=== PATIENT | male | born 1960 | race Caucasian/White ===

== ENCOUNTER 2023-12-04 14:16 | Emergency (ER) | payer BC, SELFPAY ==
[2023-12-04 14:21] VITALS: BP 171/92
[2023-12-04 14:40] LABS: % Basophils 0.5 % (0-2); % Eosinophils 5.7 % (0-6); % Immature Granulocytes 0.5 % (0-0.5); % Lymphocytes 29.7 % (20.5-51.1); % Monocytes 7.2 % (1.7-9.3); % Neutrophils 56.4 % (42.2-75.2); Absolute Eosinophils 0.4 10^3/uL (0-0.7); Absolute Lymphocytes 1.9 10^3/uL (1.2-3.4); Absolute Monocytes 0.5 10^3/uL (0.1-0.6); Absolute Neutrophils 3.6 10^3/uL (1.4-6.5); Hematocrit 44.1 % (39.0-52.0); Hemoglobin 15.3 g/dL (13.0-18.0); Mean Corp Hgb Conc. 34.7 g/dL (33.0-37.0); Mean Corpuscular Hgb 29.1 pg (27.0-31.0); Mean Platelet Volume 10.5 fL (7.4-10.4); Nucleated Red Blood Cells % 0 % (-); Platelet Count 129 10^3/uL (130-400); Red Blood Cell Count 5.25 10^6/uL (4.70-6.10); Red Cell Dist. Width 13.7 % (11.5-14.5); White Blood Cell Count 6.4 10^3/uL (4.8-10.8)
[2023-12-04 15:07] LABS: ALT (SGPT) 46 U/L (0-50); AST (SGOT) 40 U/L (17-59); Albumin 4.8 g/dl (3.5-5.0); Alkaline Phosphatase 88 U/L (38-126); Blood Urea Nitrogen 10 mg/dl (9-20); Calcium 9.8 mg/dl (8.4-10.2); Carbon Dioxide 27 mmol/L (22-30); Chloride 101 mmol/L (98-107); Glucose 119 mg/dl (70-99); Potassium 3.8 mmol/L (3.5-5.1); Sodium 139 mmol/L (135-145); Total Protein 7.3 g/dl (6.3-8.2); eGFR > 60.00
--- NOTE | 2023-12-04 17:16 | ED.GENMED ---
History of Present Illness
General
Chief Complaint: Blood Pressure Problem
Time Seen by Provider: 12/04/23 17:06
Travel History
Have you had any contact with someone who has COVID-19?: No
Do you have any symptoms of coronavirus? Fever > 100 degrees, chills, cough, shortness of breath, sore throat, loss of taste or smell, muscle aches, or headache?: No
History of Present Illness
History of Present Illness:
63-year-old male presents the emergency department for evaluation of elevated blood pressures for the past several days. He reports that he has felt lightheaded for the past 2 to 3 days as well. Denies any vertigo, chest pain, or shortness of
breath. Notes that his blood pressure medications were discontinued several months ago after having acute renal failure felt to be due to diuretic medications. His blood pressure was apparently normal at her primary doctor visit 1 month ago.
Past History
Past History
ED Past Medical History: Asthma, HTN, Hypercholesterolemia and Other (Cirrhosis)
ED Past Surgical History: Orthopedic
Social History
Tobacco: Non-smoker
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
Drug: None
Personal:
Living: with family
Employment: Employed
Family History
Family History: Hypertension and Other (Noncontributory)
Review of Systems
Review of Systems
Allergies reviewed?: Yes
All Other Systems: ROS reviewed and negative except as documented in HPI and ROS
Phy Exam
Physical Exam
Physical Exam:
GEN: Well appearing, NAD, WDWN
HEENT: Oral mucosa moist, no scleral icterus, no nasal congestion
Cardiac: Regular rate and rhythm, no murmurs
Lung: No respiratory distress, no tachypnea lungs clear to auscultation bilaterally
MSK: No gross deformity or injuries
Skin: Good color, no pallor or jaundice, no rashes
Neuro: AO x3; CN II-XII grossly intact. BUE strength 5/5 in all cruz, sensation intact and symmetric. BLE strength 5/5 in all cruz, sensation intact and symmetric
Psych: Calm, cooperative
Course
Orders/Labs/Results
Orders:
Orders
12/04/23 14:24
Electrocardiogram (*1) Urgent
Reason for Study: Hypertension, Benign
EKG- Treatment ONCE
12/04/23 14:30
Complete Blood Count/With Diff Urgent
Comprehensive Metabolic Panel Urgent
Abnormal Lab Results
12/04/23
14:30
Plt Count 129 L 10^3/uL
(130-400)
MPV 10.5 H fL
(7.4-10.4)
Glucose 119 H mg/dl
(70-99)
12/04/23 14:30
12/04/23 14:30
Vital Signs
Initial and Last Documented VS:
Initial Vital Signs
Temp Pulse Resp BP Pulse Ox
98.2 F 81 16 171/92 98
12/04/23 14:21 12/04/23 14:21 12/04/23 14:21 12/04/23 14:21 12/04/23 14:21
Last Documented Vital Signs
Temp Pulse Resp BP Pulse Ox
98.2 F 93 16 177/114 99
12/04/23 14:21 12/04/23 17:47 12/04/23 14:21 12/04/23 17:47 12/04/23 17:42
MDM/Problems Addressed
MDM/Problems Addressed:
63-year-old male presents with uncontrolled hypertension. He is no longer medicated after a bout of hypotension due to renal failure several months ago. He reports lightheadedness but no vertigo suggesting a basilar artery occlusion. He is
clinically well with no focal neurologic deficits. Was just restarted on his blood pressure medication 2 days ago, advised him this will take several more days to assess for an appropriate response. No evidence for endorgan damage at this time.
Will continue to follow-up as an outpatient with a primary care physician
Comment
Comment:
EKG independently interpreted by me shows normal sinus rhythm at a rate of [address] changes concerning for ischemia, QTc of 452
*Critical Care Note
Total Time (30-74mins, 75-104mins- exclusive of procedures): Not Applicable
ED Attending Note
-
Portions of this chart may have been created with voice recognition software.� Occasional wrong word or��sound alike� substitutions may have occurred due to the inherent limitations of voice recognition software.
Discharge Plan
Departure
Patient Disposition: Home (Routine Discharge)
Date of Disposition: 12/04/23
Time of Disposition: 17:17
Patient with high blood pressure during this ER visit?: Yes
Discharge Problem:
Hypertension
Instructions: High Blood Pressure (DC)
Prescriptions:
No Action
fluoxetine 40 mg Capsule
40 mg PO DAILY
hydroxyzine pamoate 100 mg Capsule
100 mg PO BID PRN (Reason: anxiety)
fluticasone propion-salmeterol [Advair Diskus] 250-50 mcg/dose Blister With Device
1 inh INHALATION R BID
allopurinol 100 mg Tablet
100 mg PO PRN PRN (Reason: Gout flare)
Patient Comments:
stated only takes as needed during gout flare
Xifaxan 550 mg Tablet
550 mg PO BID
guaifenesin [Mucinex] 600 mg Tablet Extended Release 12hr
600 mg PO BID
Rx Instructions:
for 7 days start 04/05
milk thistle 500 mg Capsule
1,000 mg PO DAILY
fexofenadine 180 mg Tablet
180 mg PO DAILY
simvastatin 40 mg Tablet
40 mg PO HS
omeprazole 20 mg Capsule,Delayed Release(Dr/Ec)
20 mg PO DAILY
albuterol sulfate 90 mcg/actuation Hfa Aerosol Inhaler
1 puff INHALATION QID PRN (Reason: asthma)
colchicine 0.6 mg tablet
0.6 mg PO BID
fluticasone propionate 50 mcg/actuation [place],Suspension
1 spray INTRANASAL BID PRN (Reason: Allergies)
loratadine 10 mg Tablet
10 mg PO DAILY PRN (Reason: seasonal allergies)
melatonin 10 mg Tablet
10 mg PO HS PRN (Reason: insomnia)
midodrine 5 mg Tablet
10 mg PO TID@0800,1300,1800 30 Days Qty: 90 0RF
Rx Instructions:
HOLD DOSE IF SYSTOLIC BP > 100
Referrals:
Darleen Valdovinos MD [Family Provider] -
Activity Restrictions/Additional Instructions:
See your doctor in 1-2 weeks for blood pressure recheck
Interventions
Interventions:
*Risk Screen - Suicide Last Done: 12/04/23 17:42
*General Assessment Last Done: 12/04/23 17:42
*Neglect/Abuse Screening Last Done: 12/04/23 17:42
*ED COVID-19 Vaccine History Last Done: 12/04/23 14:21
*Nursing Disposition Last Done: 12/04/23 17:47
ED- Cardiac Assessment Last Done: 12/04/23 17:42
ED- Neurological Assessment Last Done: 12/04/23 17:42
ED- Pulmonary Assessment Last Done: 12/04/23 17:42
Discharge Date and Time
Discharge Date/Time: 12/04/23 17:47
[2023-12-04 17:42] VITALS: BP 177/114
[2023-12-04 17:47] VITALS: BP 177/114
== END 2023-12-04 17:47 | disposition home or self-care (01) ==
LOC: EMR 14:16
PROVIDERS: Emergency Medicine; EMERGENCY PHYSICIAN Emergency Medicine; FAMILY PHYSICIAN Internal Medicine
DX: I10 Essential (primary) hypertension (principal)
CPT/HCPCS: 99284; 80053; 85025; 93005